=== PATIENT | male | born 1960 | race Caucasian/White ===

== ENCOUNTER 2018-10-25 15:47 | Observation (INO) | payer OTHER ==
[2018-10-25] MEDS ORDERED: NS 1,000 ML IV ONE (16:12)
--- NOTE | 2018-10-25 16:19 | EDPHY ---
H & P Stated Complaint: bleeding post colonoscopy Time Seen by Provider: 10/25/18 16:12 HPI/ROS: CHIEF COMPLAINT: Intermittent hematochezia HISTORY OF PRESENT ILLNESS: The patient presents to the ED with complaints of intermittent hematochezia for the past 2 days since having a colonoscopy performed on Wednesday. The patient did have 2 benign polyps removed. The patient is not anticoagulated. He denies any abdominal pain or fever. He is unable to quantify the amount of blood he is having as it is typically mixed with stool. The patient denies any fever, cough or congestion. He denies any additional acute complaints. The patient contacted Gastroenterology who referred him to the emergency department for evaluation. REVIEW OF SYSTEMS: A comprehensive 10 point review of systems is otherwise negative aside from elements mentioned in the history of present illness. Source: Patient Exam Limitations: No limitations - Personal History Current Tetanus Diphtheria and Acellular Pertussis (TDAP): Unsure - Medical/Surgical History Hx Asthma: No Hx Chronic Respiratory Disease: No Hx Diabetes: No Hx Cardiac Disease: No Hx Renal Disease: No Hx Cirrhosis: No Hx Alcoholism: No Hx HIV/AIDS: No Hx Splenectomy or Spleen Trauma: No Other PMH: PCP Keidan. Perez. Seasonal allergies. Tet UTD - Social History Smoking Status: Never smoked - Physical Exam Exam: General Appearance: Alert, no distress Eyes: Pupils equal and round no pallor or injection ENT, Mouth: Mucous membranes moist Respiratory: There are no retractions, lungs are clear to auscultation Cardiovascular: Regular rate and rhythm Gastrointestinal: Abdomen is soft and nontender, no masses, bowel sounds normal Neurological: 5/5 strength noted all 4 extremities Skin: Warm and dry, no rashes Musculoskeletal: Neck is supple nontender Extremities: symmetrical, full range of motion Constitutional: Initial Vital Signs Temperature (C) 36.4 C 10/25/18 15:50 Heart Rate 83 10/25/18 15:50 Respiratory Rate 18 10/25/18 15:50 Blood Pressure 166/109 H 10/25/18 15:50 O2 Sat (%) 97 10/25/18 15:50 O2 Delivery Mode Room Air Allergies/Adverse Reactions: No Known Allergies Allergy (Verified 10/25/18 15:50) Home Medications: Medication Instructions Recorded Atorvastatin Calcium 10/25/18 Medical Decision Making ED Course/Re-evaluation: The patient presents to the ED with a lower GI bleed follow-up colonoscopy 2 days ago. The patient is hemodynamically stable. He is not anticoagulated. Consultation was made with Dr. Dillon Nuñez from Gastroenterology who recommends admission to the hospital for a bowel prep and repeat colonoscopy in the morning. I reviewed this with the patient and he is amenable with this plan. I re- evaluated the patient at 5:30 p.m. and he is in no acute distress with a soft nontender abdomen. Differential Diagnosis: Differential diagnosis considered includes upper GI bleed, lower GI bleed, critical anemia, hypovolemia - Data Points Laboratory Results: Laboratory Results 10/25/18 16:35 10/25/18 16:35 10/25/18 10/25/18 16:35 16:35 WBC 7.20 10^3/uL 10^3/uL (3.80-9.50) RBC 4.91 10^6/uL 10^6/uL (4.40-6.38) Hgb 14.3 g/dL g/dL (13.7-17.5) Hct 41.6 % % (40.0-51.0) MCV 84.7 fL fL (81.5-99.8) MCH 29.1 pg pg (27.9-34.1) MCHC 34.4 g/dL g/dL (32.4-36.7) RDW 13.2 % % (11.5-15.2) Plt Count 259 10^3/uL 10^3/uL (150-400) MPV 9.7 fL fL (8.7-11.7) Neut % (Auto) 68.9 % % (39.3-74.2) Lymph % (Auto) 18.9 % % (15.0-45.0) [place] % (Auto) 9.7 % % (4.5-13.0) Eos % (Auto) 1.4 % % (0.6-7.6) Baso % (Auto) 0.7 % % (0.3-1.7) Nucleat RBC Rel Count 0.0 % % (0.0-0.2) Absolute Neuts (auto) 4.96 10^3/uL 10^3/uL (1.70-6.50) Absolute Lymphs (auto) 1.36 10^3/uL 10^3/uL (1.00-3.00) Absolute Monos (auto) 0.70 10^3/uL 10^3/uL (0.30-0.80) Absolute Eos (auto) 0.10 10^3/uL 10^3/uL (0.03-0.40) Absolute Basos (auto) 0.05 10^3/uL 10^3/uL (0.02-0.10) Absolute Nucleated RBC 0.00 10^3/uL 10^3/uL (0-0.01) Immature Gran % 0.4 % % (0.0-1.1) Immature Gran # 0.03 10^3/uL 10^3/uL (0.00-0.10) Sodium 140 mEq/L mEq/L (135-145) Potassium 4.2 mEq/L mEq/L (3.5-5.2) Chloride 107 mEq/L mEq/L (97-110) Carbon Dioxide 25 mEq/l mEq/l (22-31) Anion Gap 8 mEq/L mEq/L (6-14) BUN 27 mg/dL H mg/dL (7-23) Creatinine 0.9 mg/dL mg/dL (0.7-1.3) Estimated GFR > 60 Glucose 104 mg/dL H mg/dL (70-100) Calcium 9.5 mg/dL mg/dL (8.5-10.4) Medications Given: Discontinued Medications Sodium Chloride (Ns) 1,000 mls @ 0 mls/hr IV EDNOW ONE; Wide Open PRN Reason: Protocol Stop: 10/25/18 16:13 Last Admin: 10/25/18 16:36 Dose: 1,000 mls Departure - Departure Disposition: [facility] Inpatient Acute Clinical Impression: Lower GI bleed Condition: Good Referrals: Ed Chua MD [Primary Care Provider] - As per Instructions
[2018-10-25 16:46] LABS: PLATELET COUNT 259 10^3/uL (150-400)
[2018-10-25] MEDS ORDERED: PEG 3350/NA SULF,BICARB,CL/KCL (GAVILYTE-G) 4000 ML BTL PO ONE ×2 (18:27→20:45)
[2018-10-25] MEDS ORDERED: ONDANSETRON DISINTEGRATING 4 MG TAB PO PRN (18:29)
[2018-10-25] MEDS ORDERED: ACETAMINOPHEN 325 MG TAB PO PRN (18:29)
[2018-10-25] MEDS ORDERED: ONDANSETRON 4 MG/2 ML VIAL IVP PRN (18:29)
--- NOTE | 2018-10-25 18:41 | PDGENHP ---
<Tejal Briscoe - Last Filed: 10/25/18 19:47> History and Physical - Chief Complaint Hematochezia - History of Present Illness 58 y/o male with history of HTN, DM, and HLD presents to the emergency room with intermittent hematochezia s/p receiving a colonoscopy on Wednesday. He reports he received his first colonoscopy at age 56. At that time, benign polyps were found but it was suggested by the doctor to repeat colonoscopy in 2 years because "something looked suspicious." On Wednesday, he had a colonoscopy by Dr. Rico and a few polyps were found. Per pathology, one polyp shows features of sessile serated adenoma and the other polyp shows no high grade dysplasia. After the procedure, he went home and took a nap. He denies lack of appetite and in fact, reports "overdoing it," because he was hungry. He had some diarrhea without blood but near nighttime and today, he began to have era blood in his diarrhea. He denies lightheadedness, nausea, vomiting, chest pains, SOB, dysuria, hematuria, abdominal tenderness. He was told to come to the ER to be admitted and will have a colonoscopy tomorrow. Past Medical/Surgical History 1. Hyperlipidemia 2. Type II Diabetes 3. Obesity 4. Hypertension 5. Appendectomy Social 1. Denies tobacco or illicit drug use. Drinks alcohol rarely. 2. Lives in [place] with his Marifer 3. 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 Vital Signs 164/96 75 HR 16 Respirations 36.4c 97% RA History Information - Allergies/Home Medication List Allergies/Adverse Reactions: No Known Allergies Allergy (Verified 10/25/18 15:50) Home Medications: Atorvastatin Calcium [Lipitor 40 mg (*)] 40 mg PO DAILY 10/25/18 [Last Taken ] Fluticasone Nasal [Flonase Nasal [place] (RX)] 1 sprays NASAL DAILY PRN 10/25/18 [ Last Taken 10/04/18] Sodium Chloride [Saline Nose [place]] 1 spray NS DAILY PRN 10/25/18 [Last Taken Unknown] I have personally reviewed and updated: family history, medical history, social history, surgical history Past Medical History: See HPI list - Surgical History Reports: appendectomy - Family History Positive for: father with history of CAD younger than 55, myocardial infarction Additional family history: Father of [place] at 68 y/o. Mother alive at 96 y/o and healthy - Social History Smoking Status: Never smoked Alcohol Use: Rarely Drug Use: None Review of Systems Review of Systems: ROS: 10pt was reviewed & negative except for what was stated in HPI & below Constitutional: Reports: no symptoms EENMT: Reports: no symptoms Cardiac: Reports: no symptoms Respiratory: Reports: no symptoms Gastrointestinal: Reports: blood streaked stools, diarrhea (Residual from the bowel prep) Genitourinary: Reports: no symptoms Muscolosketal: Reports: no symptoms Skin: Reports: no symptoms Neurological: Reports: no symptoms Hematologic/Lymphatic: Reports: no symptoms Immunologic/Allergy: Reports: no symptoms Physical Exam Physical Exam: Lab data reviewed INR: 0.99 RBC: 4.91 Hgb/Hct: 14.3/41.6 MCV: 84.7 Plt: 259 BUN/Creatinine: 27/0.9 Temp Pulse Resp BP Pulse Ox 36.4 C 75 16 164/96 H 97 10/25/18 15:50 10/25/18 17:40 10/25/18 17:40 10/25/18 17:40 10/25/18 17:40 Constitutional: no apparent distress, appears nourished, not in pain Eyes: PERRL, anicteric sclera, EOMI Ears, Nose, Mouth, Throat: moist mucous membranes, hearing normal, ears appear normal, no oral mucosal ulcers Cardiovascular: regular rate and rhythym, no murmur, rub, or gallop, No edema Peripheral Pulses: 2+: dorsalis-pedis (R) (Radial 2+), dorsalis-pedis (L) ( Radial 2+) Respiratory: no respiratory distress, no rales or rhonchi, clear to auscultation Gastrointestinal: normoactive bowel sounds, soft, non-tender abdomen, no palpable masses Genitourinary: no bladder fullness, no bladder tenderness Skin: warm, normal color, no rashes or abrasions, no fluctuance, no induration, No mottled Musculoskeletal: full muscle strength, no muscle tenderness, normal joint ROM, no joint effusions Neurologic: AAOx3, sensation intact bilaterally, CN II-XII Intact Psychiatric: interacting appropriately, not anxious, not encephalopathic, thought process linear Lymph, Heme, Immunologic: no cervical LAD, no supraclavicular LAD Lab Data & Imaging Review 10/25/18 16:35 10/25/18 16:35 WBC 7.20 10^3/uL (3.80-9.50) 10/25/18 16:35 RBC 4.91 10^6/uL (4.40-6.38) 10/25/18 16:35 Hgb 14.3 g/dL (13.7-17.5) 10/25/18 16:35 Hct 41.6 % (40.0-51.0) 10/25/18 16:35 MCV 84.7 fL (81.5-99.8) 10/25/18 16:35 MCH 29.1 pg (27.9-34.1) 10/25/18 16:35 MCHC 34.4 g/dL (32.4-36.7) 10/25/18 16:35 RDW 13.2 % (11.5-15.2) 10/25/18 16:35 Plt Count 259 10^3/uL (150-400) 10/25/18 16:35 MPV 9.7 fL (8.7-11.7) 10/25/18 16:35 Neut % (Auto) 68.9 % (39.3-74.2) 10/25/18 16:35 Lymph % (Auto) 18.9 % (15.0-45.0) 10/25/18 16:35 [place] % (Auto) 9.7 % (4.5-13.0) 10/25/18 16:35 Eos % (Auto) 1.4 % (0.6-7.6) 10/25/18 16:35 Baso % (Auto) 0.7 % (0.3-1.7) 10/25/18 16:35 Nucleat RBC Rel Count 0.0 % (0.0-0.2) 10/25/18 16:35 Absolute Neuts (auto) 4.96 10^3/uL (1.70-6.50) 10/25/18 16:35 Absolute Lymphs (auto) 1.36 10^3/uL (1.00-3.00) 10/25/18 16:35 Absolute Monos (auto) 0.70 10^3/uL (0.30-0.80) 10/25/18 16:35 Absolute Eos (auto) 0.10 10^3/uL (0.03-0.40) 10/25/18 16:35 Absolute Basos (auto) 0.05 10^3/uL (0.02-0.10) 10/25/18 16:35 Absolute Nucleated RBC 0.00 10^3/uL (0-0.01) 10/25/18 16:35 Immature Gran % 0.4 % (0.0-1.1) 10/25/18 16:35 Immature Gran # 0.03 10^3/uL (0.00-0.10) 10/25/18 16:35 Sodium 140 mEq/L (135-145) 10/25/18 16:35 Potassium 4.2 mEq/L (3.5-5.2) 10/25/18 16:35 Chloride 107 mEq/L (97-110) 10/25/18 16:35 Carbon Dioxide 25 mEq/l (22-31) 10/25/18 16:35 Anion Gap 8 mEq/L (6-14) 10/25/18 16:35 BUN 27 mg/dL (7-23) H 10/25/18 16:35 Creatinine 0.9 mg/dL (0.7-1.3) 10/25/18 16:35 Estimated GFR > 60 10/25/18 16:35 Glucose 104 mg/dL (70-100) H 10/25/18 16:35 Calcium 9.5 mg/dL (8.5-10.4) 10/25/18 16:35 Assessment & Plan Plan: 58 y/o male presents s/p colonoscopy on Wednesday with intermittent hematochezia. 1. Acute lower GI bleed -Consult GI: Dr. Nuñez aware and will do colonoscopy tomorrow -Clear liquid diet now, NPO at midnight -Bowel prep -VSS, Hgb/Hct/RBC stable -CBC/BMP pending 2. Hyperlipidemia -May continue atorvastatin; scheduled for tomorrow night after colonoscopy 3. Hypertension -Continue to monitor -He was recently prescribed Lisinopril 5 mg but has yet to pick it up at the pharmacy; will start pt on this dose and medication while he is here d/t elevated BP. 4. Diabetes -He reports he is pre-diabetic with an A1c 6% on 09/20/18. Not using insulin or PO medications. He exercises regularly and watches what he eats. Continue to monitor. Non-fasting glucose was 104. Diet: Clears for now, NPO at midnight VTE ppx: SCDs, ambulate ad gisela Code: Full Dispo: Admit to obs <Emily Jimenes - Last Filed: 10/25/18 20:35> History and Physical - History of Present Illness Review of Systems Review of Systems: Physical Exam Physical Exam: Temp Pulse Resp BP Pulse Ox 36.6 C 86 18 119/73 96 10/25/18 20:04 10/25/18 20:04 10/25/18 20:04 10/25/18 20:04 10/25/18 20:04 Lab Data & Imaging Review 10/25/18 16:35 10/25/18 16:35 WBC 7.20 10^3/uL (3.80-9.50) 10/25/18 16:35 RBC 4.91 10^6/uL (4.40-6.38) 10/25/18 16:35 Hgb 14.3 g/dL (13.7-17.5) 10/25/18 16:35 Hct 41.6 % (40.0-51.0) 10/25/18 16:35 MCV 84.7 fL (81.5-99.8) 10/25/18 16:35 MCH 29.1 pg (27.9-34.1) 10/25/18 16:35 MCHC 34.4 g/dL (32.4-36.7) 10/25/18 16:35 RDW 13.2 % (11.5-15.2) 10/25/18 16:35 Plt Count 259 10^3/uL (150-400) 10/25/18 16:35 MPV 9.7 fL (8.7-11.7) 10/25/18 16:35 Neut % (Auto) 68.9 % (39.3-74.2) 10/25/18 16:35 Lymph % (Auto) 18.9 % (15.0-45.0) 10/25/18 16:35 [place] % (Auto) 9.7 % (4.5-13.0) 10/25/18 16:35 Eos % (Auto) 1.4 % (0.6-7.6) 10/25/18 16:35 Baso % (Auto) 0.7 % (0.3-1.7) 10/25/18 16:35 Nucleat RBC Rel Count 0.0 % (0.0-0.2) 10/25/18 16:35 Absolute Neuts (auto) 4.96 10^3/uL (1.70-6.50) 10/25/18 16:35 Absolute Lymphs (auto) 1.36 10^3/uL (1.00-3.00) 10/25/18 16:35 Absolute Monos (auto) 0.70 10^3/uL (0.30-0.80) 10/25/18 16:35 Absolute Eos (auto) 0.10 10^3/uL (0.03-0.40) 10/25/18 16:35 Absolute Basos (auto) 0.05 10^3/uL (0.02-0.10) 10/25/18 16:35 Absolute Nucleated RBC 0.00 10^3/uL (0-0.01) 10/25/18 16:35 Immature Gran % 0.4 % (0.0-1.1) 10/25/18 16:35 Immature Gran # 0.03 10^3/uL (0.00-0.10) 10/25/18 16:35 PT 13.3 SEC (12.0-15.0) 10/25/18 16:25 INR 0.99 (0.83-1.16) 10/25/18 16:25 Sodium 140 mEq/L (135-145) 10/25/18 16:35 Potassium 4.2 mEq/L (3.5-5.2) 10/25/18 16:35 Chloride 107 mEq/L (97-110) 10/25/18 16:35 Carbon Dioxide 25 mEq/l (22-31) 10/25/18 16:35 Anion Gap 8 mEq/L (6-14) 10/25/18 16:35 BUN 27 mg/dL (7-23) H 10/25/18 16:35 Creatinine 0.9 mg/dL (0.7-1.3) 10/25/18 16:35 Estimated GFR > 60 12/18/18 16:35 Glucose 104 mg/dL (70-100) H 10/25/18 16:35 Calcium 9.5 mg/dL (8.5-10.4) 10/25/18 16:35 Assessment & Plan Assessment: Lower GI bleed (Acute) Plan: Patient seen and evaluated independently, care plan reviewed with HUNTER Briscoe. Please see separate note for further details, agree with plan as outlined above.
[2018-10-25] MEDS ORDERED: FLUTICASONE NASAL 120 SPRAYS/16 GM MDI EACHNARE PRN (18:42)
[2018-10-25] MEDS ORDERED: SODIUM CL NASAL 45 ML BTL NS PRN (18:42)
[2018-10-25 19:07] LABS: INR 0.99 (0.83-1.16); PROTIME(PATIENT) 13.3 SEC (12.0-15.0)
[2018-10-25] MEDS: LISINOPRIL 5 MG TAB PO SCH (20:31)
--- NOTE | 2018-10-25 20:37 | HOSPPROG ---
Hospitalist Progress Note Assessment/Plan: 58 yo M presenting with GI bleed s/p colonoscopy with polypectomy # GI bleed: presenting with a post polypectomy bleed. HD stable. Discussed with GI, plan is for repeat bowel prep and flex sig in the am to eval for source of bleeding, discussed with patient, he is amenable to plan as outlined. Will get serial h/h. Does continue to have bloody BM. # elevated BUN: secondary to above # htn: recently prescribed lisinopril but has not started this yet, will initiate # observation status Patient new to my care. Old records reviewed and summarized as above. Care plan reviewed with HUNTER Briscoe and DR. Nuñez as above. Please see separate H&P by HUNTER Briscoe for further details. Objective: Vital Signs Temp Pulse Resp BP Pulse Ox 36.6 C 86 18 119/73 96 10/25/18 20:04 10/25/18 20:04 10/25/18 20:04 10/25/18 20:04 10/25/18 20:04 10/24/18 10/25/18 10/26/18 05:59 05:59 05:59 Intake Total 1000 Output Total 400 Balance 600 PT 13.3 SEC (12.0-15.0) 10/25/18 16:25 INR 0.99 (0.83-1.16) 10/25/18 16:25 ICD10 Worksheet Patient Problems: Problems Problem Status Onset Lower GI bleed Acute
[2018-10-25] MEDS ORDERED: NS 1,000 ML IV SCH (22:45)
[2018-10-26] MEDS ORDERED: MIDAZOLAM 2 MG/2 ML VIAL IVP ONE (08:32)
--- NOTE | 2018-10-26 08:33 | PDANEPAE ---
ANE Past Medical History - Pulmonary History Hx Oxygen in Use at Home: No Hx Sleep Apnea: No Sleep Apnea Screening Result - Last Documented: Positive - Endocrine History Hx Diabetes: No ANE Review of Systems Review of Systems: ANE Patient History - Allergies Allergies/Adverse Reactions: No Known Allergies Allergy (Verified 10/25/18 15:50) - Home Medications Home Medications: Atorvastatin Calcium [Lipitor 40 mg (*)] 40 mg PO DAILY 10/25/18 [Last Taken ] Fluticasone Nasal [Flonase Nasal [place] (RX)] 1 sprays NASAL DAILY PRN 10/25/18 [ Last Taken 10/04/18] Sodium Chloride [Saline Nose [place]] 1 spray NS DAILY PRN 10/25/18 [Last Taken Unknown] - NPO status NPO Since - Liquids (Date): 10/26/18 NPO Since - Liquids (Time): 03:15 NPO Since - Solids (Date): 10/26/18 NPO Since - Solids (Time): 00:00 - Smoking Hx Smoking Status: Never smoked - Alcohol Use Alcohol Use: Rarely ANE Labs/Vital Signs - Labs Result Diagrams: 10/26/18 05:19 10/26/18 05:19 - Vital Signs Blood Pressure: 130/81 Heart Rate: 68 Respiratory Rate: 16 O2 Sat (%): 96 Height: 180.34 cm Weight: 95.25 kg ANE Physical Exam - Airway Neck exam: FROM Mallampati Score: Class 2 - Pulmonary Pulmonary: no respiratory distress - Cardiovascular Cardiovascular: regular rate and rhythym - ASA Status ASA Status: II ANE Anesthesia Plan Total IV Anesthesia: Yes
[2018-10-26] MEDS ORDERED: fentaNYL 100 MCG/2 ML INJ ONE (08:44)
[2018-10-26] MEDS ORDERED: PROPOFOL/EMULSION 500 MG/50 ML BOTTLE IV ONE (08:44)
[2018-10-26] MEDS ORDERED: LIDOCAINE 2% 100 MG/5 ML SYR ONE (08:49)
[2018-10-26] MEDS ORDERED: MIDAZOLAM 2 MG/2 ML VIAL ONE (08:57)
[2018-10-26] MEDS ORDERED: NALOXONE HCL 0.4 MG/ML INJ IVP PRN (09:13)
[2018-10-26] MEDS ORDERED: ALBUTEROL 3 ML DEYVIAL IH PRN (09:13)
[2018-10-26] MEDS ORDERED: ONDANSETRON 4 MG/2 ML VIAL IVP PRN (09:13)
--- NOTE | 2018-10-26 09:29 | POSTANESTH ---
Post Anesthetic Evaluation Cardiovascular Status: Similar to Pre-Op Cond Respiratory Status: Similar to Pre-op Cond. Level of Consciousness/Mental Status: Moderately Sleepy Pain Control: Adequate, Prn Tx Ordered Nausea/Vomiting Control: Adequate, Prn Tx Ordered Complications Possibly Related to Anesthesia: None Noted
--- NOTE | 2018-10-26 09:31 | GIREPORT ---
[facility] - Endoscopy Department Patient Name: Yovanny Jalloh Procedure Date: 10/26/2018 8:57 AM Patient Type: Inpatient Attending MD/ ER Physician: Dillon Nuñez MD Procedure: Colonoscopy Indications: Hematochezia, Acute post hemorrhagic anemia Providers: Dillon Nuñez MD Medicines: Propofol per Anesthesia Complications: No immediate complications. Description of Procedure: After obtaining informed consent, the scope was passed under direct vis ion. Throughout the procedure, the patient's blood pressure, pulse, and oxyg en saturations were monitored continuously. The Colonoscope with irrigatio n channel was introduced through the anus and advanced to the cecum, identified by appendiceal orifice and ileocecal valve. The colonoscopy was performed without difficulty. The patient tolerated the procedure well. The quality of the bowel preparation was excellent. The ileocecal valve, appendiceal orifice, and rectum were photographed. Findings: The perianal and digital rectal examinations were normal. Pertinent negatives include normal sphincter tone, no palpable rectal lesions and normal prostate (size, shape, and consistency). A single localized non-bleeding erosion was found at the hepatic flexur e. This is from a cold biopsy forceps removal of a polyp. No stigmata of r ecent bleeding were seen. Multiple small and large-mouthed diverticula were found in the sigmoid colon. A single (solitary) ten mm ulcer was found in the sigmoid colon on an edematous polypectomy stalk. There is a visible vessel in the center of the stalk. Oozing was present. Stigmata of recent bleeding were present. To stop active bleeding, four hemostatic clips were successfully placed (MR conditional). There was no bleeding at the end of the procedure. An adjacent tattoo was seen to the polypectomy site. Estimated Blood Loss: Estimated blood loss: none. Estimated blood loss was minimal. Post Op Diagnosis: - A single erosion at the hepatic flexure. - Diverticulosis in the sigmoid colon. - A single (solitary) ulcer in the sigmoid colon. Clips (MR conditional ) were placed. - No specimens collected. Recommendation: - Repeat colonoscopy in 3 years for surveillance. - No aspirin, ibuprofen, naproxen, or other non-steroidal anti-inflamma tory drugs for 2 weeks. - Return patient to [facility]. - Advance diet as tolerated today. - Check hemogram with white blood cell count and platelets in the [facility]. - Thank you for allowing me to be involved in the care of your patient. Attending Participation: I personally performed the entire procedure without the assistance of a fellow, resident or surg ical tutoring assistant. Dillon Nuñez MD Dillon Nuñez MD 10/26/2018 9:30:23 AM This report has been signed electronicallyDavid MD [place] Number of Addenda: 0 Note Initiated On: 10/26/2018 8:57 AM Total Procedure Duration Time 0 hours 16 minutes 50 seconds [email or web address]
--- NOTE | 2018-10-26 09:38 | GCON ---
DATE OF CONSULTATION: 10/26/2018 REFERRING PHYSICIAN: Emily Jimenes MD REASON FOR CONSULTATION: Hematochezia. Dear Dr. Jimenes: Thank you very kindly for asking me to evaluate the patient in consultation for a chief complaint of hematochezia after a colonoscopy performed on Wednesday. He had 2 small polyps removed from the transve rse colon by cold biopsy forceps technique and a larger polyp removed from the sigmoid colon by snare , cautery polypectomy. He developed bright red blood per rectum with clots yesterday evening, with m ultiple episodes of bleeding. He was hemodynamically stable in the ER, with a normal PT/INR. His in itial hematocrit is 41.6, which fell to 31.2. He has continued to pass bright red blood per rectum a nd some darker-colored blood. There is no abdominal pain. He denies fever or nausea. He denies any use of nonsteroidal medications, blood thinners, or alcohol. I am asked to assist with further eval uation and management. PAST MEDICAL HISTORY: 1. Diabetes. 2. Hyperlipidemia. 3. Personal history of colon polyps. PAST SURGICAL HISTORY: Previous colonoscopy at age 56, with removal of a tubulovillous adenoma and t he colonoscopy yesterday as described. Appendectomy. SOCIAL HISTORY: No tobacco, no alcohol. He is . FAMILY HISTORY: Negative for colon cancer or colon polyps or bleeding disorders. ALLERGIES: None known. MEDICATIONS: Include atorvastatin, fluticasone, and saline nasal spray. REVIEW OF SYSTEMS: CONSTITUTIONAL: Denies fever, chills, anorexia, or weight loss. HEENT: No head ache. No visual disturbances. No sore throat. No epistaxis. PULMONARY: No cough or shortness of breath. CARDIOVASCULAR: No chest pain, palpitations, or syncope. GI: No abdominal pain. No heart burn. No dysphagia. No nausea. No vomiting. No hematemesis. MUSCULOSKELETAL: No joint or muscle pain or swelling. DERMATOLOGIC: No rash or jaundice. NEURO: No paresthesias, weakness, falls, or seizure. ENDOCRINE: No heat or cold intolerance. No polyuria. No polydipsia. GENITOURINARY: No hematuria, flank pain, or dysuria. PSYCHIATRIC: No depression or anxiety. PHYSICAL EXAM: VITAL SIGNS: Blood pressure is 130/81, with a heart rate of 68, respiratory rate of 16, with 96% on room air. Temperature is 36.5. GENERAL: Healthy-appearing male, in no acute distres s. HEENT: Normocephalic, atraumatic. Oropharynx is clear. No blood in the pharynx or nares. NECK : Supple. No jugular venous distention. No carotid bruit. PULMONARY: Clear to auscultation bilat erally, with good air exchange. CARDIOVASCULAR: Regular rate and rhythm, without murmur, rub, or ga llop. GI: Abdomen is soft, nondistended, nontender. No organomegaly. No ascites. No bruit. MUSC ULOSKELETAL: No joint deformity, swelling or warmth. DERMATOLOGIC: No jaundice or rash. NEUROLOGI C: Alert to person, place, and time. Speech is normal, mood and affect. Motor nonfocal. LABORATORY DATA: Database includes a white blood count of 7.2, hematocrit 41.6. Platelets are 259. This morning's labs reveal a white blood count of 5.4. Hematocrit is 31.2, with platelets of 186. INR 0.99. Chemistry: Sodium 142, potassium 3.9, chloride 109, bicarbonate 26, BUN 16, creatinine 0. 8, glucose 103. IMPRESSION: 1. Hematochezia. 2. Post-polypectomy bleed. 3. Anemia secondary to blood loss. 4. Diabetes mellitus. 5. Hyperlipidemia. RECOMMENDATIONS: 1. Type and hold 2 units of blood. 2. Two large bore 18-gauge IV's to the upper extremity. 3. IV fluid resuscitation. 4. N.p.o. 5. Gallon of GoLSANDRALY, followed by urgent colonoscopy with monitored anesthesia care. 6. Further recommendations to follow. /[id number]/[id number]
--- NOTE | 2018-10-26 09:43 | HOSPPROG ---
Hospitalist Progress Note Assessment/Plan: 58 yo M presenting with GI bleed s/p colonoscopy with polypectomy. First encounter, chart reviewed. *GI bleed s/p polypectomy -colonoscopy this morning showed a single solitary ulcer in sigmoid colon s/p clips -repeat colonoscopy in 3 years for f/u -no NSAIDS x 2 weeks -elevated BUN due to this *htn -slightly hypotensive this morning *reviewed his care w Dr Nuñez who would like him monitored overnight, had a large ulcer and labs should be monitored closely. Will check an H and H in the morning, will get labs sooner if his bp decreases or he gets tachycardic. Subjective: Yovanny has no complaints. Objective: Vital Signs Temp Pulse Resp BP Pulse Ox 36.2 C 68 25 H 101/47 L 99 10/26/18 09:25 10/26/18 08:32 10/26/18 09:26 10/26/18 09:26 10/26/18 09:26 Laboratory Results 10/26/18 05:19 10/26/18 05:19 10/25/18 10/26/18 10/27/18 05:59 05:59 05:59 Intake Total 1000 Output Total 400 Balance 600 PT 13.3 SEC (12.0-15.0) 10/25/18 16:25 INR 0.99 (0.83-1.16) 10/25/18 16:25 - Physical Exam Constitutional: no apparent distress, appears nourished, not in pain Eyes: PERRL Ears, Nose, Mouth, Throat: hearing normal Cardiovascular: regular rate and rhythym Respiratory: no respiratory distress Gastrointestinal: normoactive bowel sounds Skin: warm Musculoskeletal: full muscle strength Neurologic: AAOx3 Psychiatric: interacting appropriately ICD10 Worksheet Patient Problems: Problems Problem Status Onset Lower GI bleed Acute
[2018-10-26] MEDS: LISINOPRIL 5 MG TAB PO SCH (11:09)
--- NOTE | 2018-10-26 15:59 | ASMTCMCOM ---
CM Note CM Note Notes: Reviewed chart, pt admitted to hospital for bleeding post colonoscopy. Pt to have another colonoscopy to determine cause of bleeding. He is otherwise independent and will dc home w/support of when medically stable. DC Plan: Independent Date Signed: 10/26/2018 03:59 PM Electronically Signed By:Genna Berger RN
[2018-10-26] MEDS: ATORVASTATIN CALCIUM 40 MG TAB PO SCH (19:55)
--- NOTE | 2018-10-27 08:39 | HOSPPROG ---
Hospitalist Progress Note Assessment/Plan: 58 yo M presenting with GI bleed s/p colonoscopy with polypectomy. *GI bleed s/p polypectomy -colonoscopy this morning showed a single solitary ulcer in sigmoid colon s/p clips -repeat colonoscopy in 3 years for f/u -no NSAIDS x 2 weeks -elevated BUN due to this *htn -slightly hypotensive this morning *plan: dc home Subjective: Yovanny is feeling fine has no complaints. Objective: Vital Signs Temp Pulse Resp BP Pulse Ox 36.7 C 75 12 134/71 H 95 10/27/18 07:49 10/27/18 07:49 10/27/18 07:49 10/27/18 07:49 10/27/18 07:49 Laboratory Results 10/27/18 04:47 10/26/18 05:19 10/26/18 10/27/18 10/28/18 05:59 05:59 05:59 Intake Total 1000 700 Output Total 400 0 Balance 600 700 PT 13.3 SEC (12.0-15.0) 10/25/18 16:25 INR 0.99 (0.83-1.16) 10/25/18 16:25 - Physical Exam Constitutional: no apparent distress, appears nourished, not in pain Eyes: PERRL Ears, Nose, Mouth, Throat: hearing normal Respiratory: no respiratory distress Skin: warm Musculoskeletal: full muscle strength Neurologic: AAOx3 Psychiatric: interacting appropriately ICD10 Worksheet Patient Problems: Problems Problem Status Onset Lower GI bleed Acute
[2018-10-27] MEDS: LISINOPRIL 5 MG TAB PO SCH (08:53)
[2018-10-27 08:55] VITALS: BP 131/64
[2018-10-27] MEDS: ATORVASTATIN CALCIUM 40 MG TAB PO SCH (09:03)
--- NOTE | 2018-10-27 15:57 | GDS ---
DISCHARGE DIAGNOSES: 1. Gastrointestinal bleed, status post polypectomy. 2. Hypertension. CONSULTATIONS DURING HIS STAY: Dr. Nuñez. HISTORY: Briefly, the patient is a 58-year-old gentleman with a history of hypertension, diabetes, a nd hyperlipidemia. He presented to the emergency room with intermittent hematochezia after having a colonoscopy on Wednesday. He was seen and evaluated by Dr. Nuñez and had a colonoscopy for further eval uation. It was noted that he had a single erosion of hepatic flexure, a single ulcer in the sigmoid colon was noted, and clips were placed. Recommendation was to watch him overnight and have him hold all NSAIDs. HOSPITAL COURSE: 1. GI bleed, status post polypectomy. No NSAIDs for 2 weeks. 2. Hypertension, stable. DISCHARGE CONDITION: Stable. Blood pressure is 134/71, O2 sats on room air 95%. Respiratory rate i s 12. Pulse is 75. Temperature is 36.7 Celsius. DISCHARGE MEDICATIONS: Please see the EMR. DISCHARGE INSTRUCTIONS: 1. No NSAIDs. 2. If develops further bleeding, to return to the ER. Copy requested to: Dr. Nuñez /[id number]/MODL
== END 2018-10-27 10:23 | disposition home or self-care (01) ==
LOC: F3E 20:11
PROVIDERS: ADMIT Internal Medicine; ATTEND Internal Medicine
PROC: 0DJD8ZZ Inspection of Lower Intestinal Tract, Via Natural or Artificial Opening Endoscopic (ICD-10-PCS; principal; 2018-10-25)
DX: K91.840 Postprocedural hemorrhage of a digestive system organ or structure following a digestive system procedure (principal); I10 Essential (primary) hypertension; K63.3 Ulcer of intestine; K57.30 Diverticulosis of large intestine without perforation or abscess without bleeding; E86.9 Volume depletion, unspecified
CPT/HCPCS: 45378; 96360; 99285; G0378; J2001; J2250; J2704; J3010